=== PATIENT | female | born 1955 | race Caucasian/White ===

== ENCOUNTER 2019-01-23 13:42 | Emergency (ER) | payer MEDICARE, OTHER ==
[2019-01-23] MEDS: LORAZEPAM 1 MG TAB PO (14:33)
[2019-01-23] MEDS: ACETAMINOPHEN 325 MG TAB PO (14:33)
== END 2019-01-23 16:41 | disposition home or self-care (01) ==
LOC: FTE 13:42
DX: M25.521 Pain in right elbow (principal); M25.561 Pain in right knee; M54.2 Cervicalgia; I10 Essential (primary) hypertension
CPT/HCPCS: 72040; 73080-RT; 73562; 99284-25

== ENCOUNTER 2019-02-11 10:49 | Emergency (ER) | payer MEDICARE, OTHER ==
[2019-02-11] MEDS: traMADol 50 MG TAB PO (12:03)
[2019-02-11] MEDS: CARISOPRODOL 350 MG TAB PO (13:00)
== END 2019-02-11 13:04 | disposition home or self-care (01) ==
LOC: FTE 10:49
DX: G62.9 Polyneuropathy, unspecified (principal); I10 Essential (primary) hypertension; E03.9 Hypothyroidism, unspecified
CPT/HCPCS: 99283

== ENCOUNTER 2019-02-25 20:39 | Emergency (ER) | payer MEDICARE, OTHER ==
[2019-02-26] MEDS ORDERED: ACETAMINOPHEN 325 MG TAB PO
[2019-02-26] MEDS: HYDROCODONE/APAP (5/325) TAB PO (00:06)
== END 2019-02-26 03:46 | disposition home or self-care (01) ==
LOC: FTE 20:39
DX: M79.604 Pain in right leg (principal)
CPT/HCPCS: 73550; 99283-25